=== PATIENT | male | born 1950 | race Caucasian/White ===

== ENCOUNTER 2018-12-19 11:54 | Outpatient (CLI) | payer MEDICARE, MEDICAID, SELFPAY ==
[2018-12-20 09:05] LABS: PSA, Diagnostic <0.1 ng/ml (0-4.5)
[2018-12-23 16:24] LABS: Testosterone, Total 252 ng/dL (240-950)
== END 2018-12-19 12:14 ==
PROVIDERS: PCP Nurse Practitioner; Visit Provider Nurse Practitioner
DX: C61 Malignant neoplasm of prostate (principal)
CPT/HCPCS: 36415; 84403; 84153